=== PATIENT | male | born 1960 | race Two or more races ===

== ENCOUNTER 2020-11-02 15:16 | Inpatient (IN) | payer OTHER ==
[2020-11-02 16:57] VITALS: BMI 33.2
[2020-11-02] MEDS ORDERED: MENTHOL/PHENOL 1 EACH UD MM PRN (18:14)
[2020-11-02] MEDS ORDERED: ACETAMINOPHEN 325 MG TABLET (FP) PO PRN ×2 (18:14)
[2020-11-02] MEDS ORDERED: MAG HYDROX/AL HYDROX/SIMETH 30 ML UNIT-DOSE CUP PO PRN (18:14)
[2020-11-02] MEDS ORDERED: MAGNESIUM CITRATE 300 ML BOTTLE PO PRN (18:14)
[2020-11-02] MEDS ORDERED: MAGNESIUM HYDROX 2400MG/30ML ORAL SUSPENSION 30 ML CUP PO PRN (18:14)
[2020-11-02] MEDS ORDERED: BISMUTH SUBSALICYLATE 524 MG/30 ML UD PO PRN (18:14)
[2020-11-02] MEDS ORDERED: METHOCARBAMOL 500 MG TABLET PO PRN (18:14)
[2020-11-02] MEDS ORDERED: ONDANSETRON *ODT* 4 MG TABLET SL PRN (18:14)
[2020-11-02] MEDS ORDERED: chlordiazePOXIDE HCL 25 MG CAPSULE PO PRN (18:14)
[2020-11-02] MEDS ORDERED: chlordiazePOXIDE HCL 25 MG CAPSULE ONE (19:00)
[2020-11-02] MEDS: THIAMINE HCL 100 MG TABLET (FP) PO SCH (22:45)
[2020-11-02] MEDS: hydrOXYzine PAMOATE 25 MG CAPSULE (FP) PO SCH (22:45)
[2020-11-02] MEDS: MELATONIN 5 MG TABLETS PO SCH (22:46)
[2020-11-02] MEDS: chlordiazePOXIDE HCL 25 MG CAPSULE PO SCH (22:46)
[2020-11-03] MEDS: chlordiazePOXIDE HCL 25 MG CAPSULE PO SCH ×4 (06:10→22:32)
[2020-11-03] MEDS: hydrOXYzine PAMOATE 25 MG CAPSULE (FP) PO SCH ×5 (06:11→22:32)
[2020-11-03] MEDS: PRENATAL VITAMINS W/ FOLIC ACID TABLET (FP) PO SCH (10:13)
[2020-11-03] MEDS: PANTOPRAZOLE 40 MG TABLET PO SCH (10:13)
[2020-11-03 11:42] LABS: HEMATOCRIT 45.5 % (35.4-49); HEMOGLOBIN 15.5 GM/dL (11.7-16.9); MCH 32.6 pg (25.7-33.7); MEAN CELL VOLUME 95.8 fl (80-96); MEAN PLT VOLUME 10.7 fl (7.5-11.1); PLATELET COUNT 125 K/MM3 (134-434); RBC 4.75 M/mm3 (4.00-5.60); RDW 16.5 % (11.9-15.9); WHITE BLOOD COUNT 6.5 K/mm3 (4.0-10.0)
[2020-11-03 11:48] LABS: CALCIUM 9.3 mg/dL (8.5-10.1)
[2020-11-03 11:49] LABS: ALBUMIN 3.9 g/dl (3.4-5.0); BLOOD UREA NITROGEN 8.3 mg/dL (7-18)
[2020-11-03 11:52] LABS: CREATININE 1.2 mg/dL (0.55-1.3)
[2020-11-03 11:53] LABS: BILIRUBIN,TOTAL 2.7 mg/dL (0.2-1); TOT PROT 7.6 g/dl (6.4-8.2)
[2020-11-03] MEDS ORDERED: PNEUMOCOCCAL 23 VACCINE 0.5 ML VIAL IM ONE (12:00)
[2020-11-03] MEDS ORDERED: PNEUMOC 13-VAL CONJ-DIP CRM/PF 0.5 ML DISP.SYRIN IM ONE (12:00)
[2020-11-03] MEDS ORDERED: FLU VACCINE (FLULAVAL) PF 60 MCG/0.5 ML SYRINGE 2020-2021 IM ONE (12:00)
[2020-11-03 12:23] LABS: SICKLE CELL SCREEN NEGATIVE (NEGATIVE)
[2020-11-03] MEDS ORDERED: POTASSIUM CHLORIDE TABS 20 MEQ TABLET.ER (FP) PO ONE (19:12)
[2020-11-03] MEDS: MELATONIN 5 MG TABLETS PO SCH (22:32)
[2020-11-03] MEDS: THIAMINE HCL 100 MG TABLET (FP) PO SCH (22:32)
[2020-11-04] MEDS: chlordiazePOXIDE HCL 25 MG CAPSULE PO SCH ×2 (06:04→10:09)
[2020-11-04] MEDS: hydrOXYzine PAMOATE 25 MG CAPSULE (FP) PO SCH ×5 (06:04→23:17)
[2020-11-04] MEDS: PRENATAL VITAMINS W/ FOLIC ACID TABLET (FP) PO SCH (10:09)
[2020-11-04] MEDS: POTASSIUM CHLORIDE TABS 20 MEQ TABLET.ER (FP) PO SCH (10:09)
[2020-11-04] MEDS: PANTOPRAZOLE 40 MG TABLET PO SCH (10:09)
[2020-11-04] MEDS ORDERED: LORazepam 1 MG TABLET PO PRN (11:37)
[2020-11-04] MEDS: LORazepam 1 MG TABLET PO SCH ×2 (17:48→23:17)
[2020-11-04] MEDS: THIAMINE HCL 100 MG TABLET (FP) PO SCH (23:17)
[2020-11-04] MEDS: MELATONIN 5 MG TABLETS PO SCH (23:17)
[2020-11-05] MEDS ORDERED: chlordiazePOXIDE HCL 10 MG CAPSULE PO PRN
[2020-11-05] MEDS ORDERED: chlordiazePOXIDE HCL 10 MG CAPSULE PO SCH (05:00)
[2020-11-05] MEDS: LORazepam 0.5 MG TABLET PO SCH ×4 (05:10→22:11)
[2020-11-05] MEDS: IBUPROFEN 400 MG TABLET (FP) PO PRN (05:11)
[2020-11-05] MEDS: hydrOXYzine PAMOATE 25 MG CAPSULE (FP) PO SCH ×5 (05:12→22:09)
[2020-11-05] MEDS: PRENATAL VITAMINS W/ FOLIC ACID TABLET (FP) PO SCH (10:14)
[2020-11-05] MEDS: POTASSIUM CHLORIDE TABS 20 MEQ TABLET.ER (FP) PO SCH (10:15)
[2020-11-05] MEDS: PANTOPRAZOLE 40 MG TABLET PO SCH (10:15)
[2020-11-05 10:45] LABS: CHLORIDE 105 mmol/L (98-107); SODIUM 141 mmol/L (136-145)
[2020-11-05 10:47] LABS: CO2 30 mmol/L (21-32)
[2020-11-05 10:48] LABS: BLOOD UREA NITROGEN 9.7 mg/dL (7-18); GLUCOSE,RANDOM 127 mg/dL (74-106)
[2020-11-05 10:50] LABS: ANION GAP 7 MMOL/L (8-16); CREATININE 1.2 mg/dL (0.55-1.3)
[2020-11-05 10:54] LABS: CALCIUM 8.9 mg/dL (8.5-10.1)
[2020-11-05] MEDS ORDERED: POTASSIUM CHLORIDE ORAL LIQUID 20 MEQ/15 ML PO ONE (11:45)
[2020-11-05] MEDS: BACITRACIN 0.9 GM PACKET TP SCH ×2 (11:48→22:09)
[2020-11-05] MEDS ORDERED: AMOXICILLIN 500 MG CAPSULE (FP) PO ONE (17:17)
[2020-11-05] MEDS: THIAMINE HCL 100 MG TABLET (FP) PO SCH (22:09)
[2020-11-05] MEDS: AMOXICILLIN 500 MG CAPSULE (FP) PO SCH (22:10)
[2020-11-05] MEDS: MELATONIN 5 MG TABLETS PO SCH (22:10)
[2020-11-05] MEDS: POTASSIUM CHLORIDE ORAL LIQUID 20 MEQ/15 ML PO SCH (22:10)
[2020-11-06] MEDS ORDERED: chlordiazePOXIDE HCL 10 MG CAPSULE PO SCH (05:00)
[2020-11-06] MEDS ORDERED: LORazepam 0.5 MG TABLET PO ONE (05:00)
[2020-11-06] MEDS: IBUPROFEN 400 MG TABLET (FP) PO PRN (05:19)
[2020-11-06] MEDS: hydrOXYzine PAMOATE 25 MG CAPSULE (FP) PO SCH ×5 (05:21→22:15)
[2020-11-06] MEDS: AMOXICILLIN 500 MG CAPSULE (FP) PO SCH ×3 (05:22→22:17)
[2020-11-06] MEDS: POTASSIUM CHLORIDE ORAL LIQUID 20 MEQ/15 ML PO SCH ×2 (09:36→22:15)
[2020-11-06] MEDS: PANTOPRAZOLE 40 MG TABLET PO SCH (09:36)
[2020-11-06] MEDS: PRENATAL VITAMINS W/ FOLIC ACID TABLET (FP) PO SCH (09:37)
[2020-11-06 10:10] LABS: HEMATOCRIT 42.9 % (35.4-49); HEMOGLOBIN 14.8 GM/dL (11.7-16.9); MCH 33.6 pg (25.7-33.7); MCHC 34.4 g/dl (32.0-35.9); MEAN CELL VOLUME 97.7 fl (80-96); MEAN PLT VOLUME 10.7 fl (7.5-11.1); PLATELET COUNT 123 K/MM3 (134-434); RBC 4.39 M/mm3 (4.00-5.60); RDW 16.9 % (11.9-15.9); WHITE BLOOD COUNT 6.1 K/mm3 (4.0-10.0)
[2020-11-06 10:11] LABS: INR 1.09 (0.83-1.09); PROTHROMBIN TIME (PATIENT) 13.4 SEC (9.7-13.0)
[2020-11-06 10:21] LABS: ALBUMIN 3.3 g/dl (3.4-5.0)
[2020-11-06 10:22] LABS: BLOOD UREA NITROGEN 9.9 mg/dL (7-18)
[2020-11-06 10:26] LABS: TOT PROT 6.7 g/dl (6.4-8.2)
[2020-11-06] MEDS: BACITRACIN 0.9 GM PACKET TP SCH ×2 (10:52→22:15)
[2020-11-06] MEDS: LACTULOSE 20 GM/30 ML UDC (FOR ORAL USE ONLY) PO SCH ×3 (13:01→22:15)
[2020-11-06] MEDS: MELATONIN 5 MG TABLETS PO SCH (22:15)
[2020-11-06] MEDS: THIAMINE HCL 100 MG TABLET (FP) PO SCH (22:16)
[2020-11-07] MEDS ORDERED: LORazepam 0.5 MG TABLET PO PRN
[2020-11-07] MEDS ORDERED: chlordiazePOXIDE HCL 10 MG CAPSULE PO ONE (05:00)
[2020-11-07] MEDS: hydrOXYzine PAMOATE 25 MG CAPSULE (FP) PO SCH ×5 (05:31→22:09)
[2020-11-07] MEDS: AMOX TR/POT CLAV 875MG/125MG TABLETS (FP) PO SCH ×2 (07:21→17:40)
[2020-11-07] MEDS: LACTULOSE 20 GM/30 ML UDC (FOR ORAL USE ONLY) PO SCH ×4 (09:37→22:10)
[2020-11-07] MEDS: POTASSIUM CHLORIDE ORAL LIQUID 20 MEQ/15 ML PO SCH ×2 (09:37→22:40)
[2020-11-07] MEDS: PANTOPRAZOLE 40 MG TABLET PO SCH (09:37)
[2020-11-07] MEDS: PRENATAL VITAMINS W/ FOLIC ACID TABLET (FP) PO SCH (09:38)
[2020-11-07] MEDS: BACITRACIN 0.9 GM PACKET TP SCH ×2 (09:38→22:08)
[2020-11-07] MEDS: LORazepam 0.5 MG TABLET PO SCH ×2 (10:33→22:09)
[2020-11-07 12:55] LABS: ALBUMIN 3.3 g/dl (3.4-5.0); CALCIUM 8.6 mg/dL (8.5-10.1)
[2020-11-07 13:00] LABS: BILIRUBIN,TOTAL 0.7 mg/dL (0.2-1); TOT PROT 6.5 g/dl (6.4-8.2)
[2020-11-07 13:11] LABS: SARS-CoV-2 NAA Not Detected (Not Detected)
[2020-11-07] MEDS: MELATONIN 5 MG TABLETS PO SCH (22:09)
[2020-11-07] MEDS: THIAMINE HCL 100 MG TABLET (FP) PO SCH (22:09)
[2020-11-08] MEDS: hydrOXYzine PAMOATE 25 MG CAPSULE (FP) PO SCH ×4 (06:26→17:42)
[2020-11-08] MEDS: AMOX TR/POT CLAV 875MG/125MG TABLETS (FP) PO SCH ×2 (07:39→17:42)
[2020-11-08] MEDS ORDERED: LORazepam 0.5 MG TABLET PO ONE (10:00)
[2020-11-08] MEDS: PRENATAL VITAMINS W/ FOLIC ACID TABLET (FP) PO SCH (10:36)
[2020-11-08] MEDS: PANTOPRAZOLE 40 MG TABLET PO SCH (10:36)
[2020-11-08] MEDS: BACITRACIN 0.9 GM PACKET TP SCH ×2 (10:36→22:22)
[2020-11-08] MEDS: LACTULOSE 20 GM/30 ML UDC (FOR ORAL USE ONLY) PO SCH ×4 (10:38→22:22)
[2020-11-08] MEDS ORDERED: guaiFENesin 200 MG/10 ML 10 ML UNIT-DOSE CUPS PO PRN (10:44)
[2020-11-08] MEDS: THIAMINE HCL 100 MG TABLET (FP) PO SCH (22:22)
[2020-11-08] MEDS: MELATONIN 5 MG TABLETS PO SCH (22:22)
[2020-11-09] MEDS ORDERED: LORazepam 0.5 MG TABLET PO ONE (05:00)
[2020-11-09] MEDS: AMOX TR/POT CLAV 875MG/125MG TABLETS (FP) PO SCH (07:20)
[2020-11-09 09:08] VITALS: BP 131/95; PULSE 96; TEMP 97.7
[2020-11-09] MEDS: LACTULOSE 20 GM/30 ML UDC (FOR ORAL USE ONLY) PO SCH (09:31)
[2020-11-09] MEDS: BACITRACIN 0.9 GM PACKET TP SCH (09:31)
[2020-11-09] MEDS: PRENATAL VITAMINS W/ FOLIC ACID TABLET (FP) PO SCH (09:32)
[2020-11-09] MEDS: PANTOPRAZOLE 40 MG TABLET PO SCH (09:32)
== END 2020-11-09 11:13 | disposition home or self-care (01) | DRG 775 ==
LOC: YASAS 15:16 → Y3N 18:42
PROVIDERS: ADMIT Allergy & Immunology; ATTEND Allergy & Immunology
PROC: HZ2ZZZZ Detoxification Services for Substance Abuse Treatment (ICD-10-PCS; principal; 2020-11-02)
DX: F10.230 Alcohol dependence with withdrawal, uncomplicated (principal); E87.6 Hypokalemia; I10 Essential (primary) hypertension; K21.9 Gastro-esophageal reflux disease without esophagitis; M19.90 Unspecified osteoarthritis, unspecified site; R79.89 Other specified abnormal findings of blood chemistry; R74.8 Abnormal levels of other serum enzymes; H11.32 Conjunctival hemorrhage, left eye; S02.32XA Fracture of orbital floor, left side, initial encounter for closed fracture; W18.30XA Fall on same level, unspecified, initial encounter; Y93.89 Activity, other specified; Y92.230 Patient room in hospital as the place of occurrence of the external cause; Y99.9 Unspecified external cause status
CPT/HCPCS: 36415; 80048; 80053; 82140; 85027; 85610; 85660; 86780; 90732; 93005; 93010; C9803; G0008; G0009; Q2036; U0003; U0005

== ENCOUNTER 2020-11-04 22:15 | Emergency (ER) | payer OTHER ==
[2020-11-04 22:45] VITALS: BP 113/72; PULSE 79; TEMP 98.5; BMI 28.2
== END 2020-11-05 03:41 | disposition home or self-care (01) ==
LOC: JER 22:15
DX: S01.81XA Laceration without foreign body of other part of head, initial encounter (principal)
CPT/HCPCS: 36415; 70450-TC; 72125-TC; 84484; 93005; 93010; 99285-25

== ENCOUNTER 2020-11-06 13:32 | Emergency (ER) | payer OTHER ==
[2020-11-06 15:30] VITALS: BP 98/66; PULSE 68; TEMP 97.3; BMI 28.2
== END 2020-11-06 21:20 | disposition home or self-care (01) ==
LOC: JER 13:32
DX: S02.32XA Fracture of orbital floor, left side, initial encounter for closed fracture (principal)
CPT/HCPCS: 70486-TC; 99284-25